=== PATIENT | male | born 1980 | race Caucasian/White ===

== ENCOUNTER 2018-03-27 14:29 | Emergency (ER) | payer OTHER ==
[~2018-03-27] VITALS: Ht 167.6 cm; Wt 61.2 kg
== END 2018-03-27 17:00 | disposition home or self-care (01) ==
LOC: ER 14:29
DX: L03.011 Cellulitis of right finger (principal)

== ENCOUNTER 2019-03-08 18:51 | Emergency (ER) | payer OTHER ==
[~2019-03-08] VITALS: Ht 167.6 cm; Wt 72.6 kg
== END 2019-03-08 20:51 | disposition home or self-care (01) ==
LOC: ER
DX: S51.852A Open bite of left forearm, initial encounter (principal); W54.0XXA Bitten by dog, initial encounter; Y93.89 Activity, other specified; Y92.89 Other specified places as the place of occurrence of the external cause; Y99.8 Other external cause status

== ENCOUNTER 2024-06-15 10:07 | Emergency (ER) | payer OTHER ==
[~2024-06-15] VITALS: Ht 167.6 cm; Wt 75.3 kg
[2024-06-15 10:27] VITALS: BP 112/78; O2SAT 97
[2024-06-15] MEDS ORDERED: ORPHENADRINE CITRATE 30 MG/ML AMPUL IM STA (11:07)
[2024-06-15] MEDS ORDERED: KETOROLAC TROMETHAMINE 60 MG VIAL IM STA (11:07)
[2024-06-15] MEDS ORDERED: KETOROLAC TROMETHAMINE 60 MG VIAL IM ONE (11:16)
[2024-06-15] MEDS ORDERED: ORPHENADRINE CITRATE 30 MG/ML AMPUL ONE (11:16)
== END 2024-06-15 14:25 | disposition home or self-care (01) ==
LOC: ER 10:08
DX: G44.209 Tension-type headache, unspecified, not intractable (principal); M62.838 Other muscle spasm